=== PATIENT | female | born 1955 | race Caucasian/White ===

== ENCOUNTER 2016-11-29 18:22 | Emergency (ER) | payer MEDICAID ==
[~2016-11-29] VITALS: Ht 152.4 cm; Wt 65.0 kg
[~2016-11-29 18:22] MED LIST: CA CHLORIDE 10% 10 ML SYRINGE ONE; EPINEPHrine 0.1 MG/ML SYG ONE; NA BICARBONATE 8.4% 50 ML SYG ONE
[2016-11-29 18:35] VITALS: Ht 152.4 cm; Wt 65.0 kg
[2016-11-29] MEDS ORDERED: NORepinephrine 8MG/250 ML (PMX 250 ML ONE (18:37)
[2016-11-29 18:49] VITALS: RESP 20
[2016-11-29] MEDS ORDERED: CEFEPIME 2GM/50 ML (PMX) 50 ML IVPB STA (18:52)
[2016-11-29] MEDS ORDERED: SODIUM CHLORIDE 0.9% 1L BAG IV* STA (18:52)
[2016-11-29] MEDS ORDERED: NORepinephrine 8MG/250 ML (PMX 250 ML IV STA (18:52)
[2016-11-29] MEDS ORDERED: SODIUM CHLORIDE 0.9% 500 ML BAG IV* STA (18:56)
[2016-11-29] MEDS ORDERED: VANCOMYCIN 1 GM (PMX) 250 ML IVPB ONE (19:00)
--- NOTE | 2016-11-29 19:24 | ERA ---
ER Documentation Chief Complaint Date/Time DATE: 11/29/16 TIME: 18:58 Chief Complaint witness respiratory arrest at [facility] HPI 61-year-old female brought in by ambulance for witnessed respiratory arrest. The patient has a history of chronic respiratory failure, trach and vent dependent, diabetes, hypertension, COPD. When they arrived, the patient was bradycardic on the monitor but had a faint pulse. Patient is unable to provide any history. She was pulseless upon arrival. No other information is available ROS Unable to obtain as the patient is unconscious PMhx/Soc COPD, hypertension, chronic respiratory failure, diabetes per medical records FmHx Family History: other (Unable to obtain) Physical Exam Vitals Vital Signs Date Time Temp Pulse Resp B/P Pulse Ox O2 Delivery O2 Flow Rate FiO2 11/29/16 18:49 93 20 100 100 11/29/16 18:35 96.6 41 97/76 76 Physical Exam VITAL SIGNS: GENERAL: Patient is lying on gurney and is unresponsive, cyanotic HEAD: Head is normocephalic. No evidence of trauma. No scalp or facial swelling EYES: Pupils are nonreactive. ENT: Oropharynx and nasopharynx are clear and dry NECK: Supple. No masses. Trach in place, actively being bagged RESPIRATORY: Breath sounds significantly diminished bilaterally with bagging, right greater than left. No crackles or wheezing CV: No heart sounds heard. No palpable carotid or femoral pulses ABDOMEN: Soft, distended with G-tube in place. Surgical scars noted.. No masses EXTREMITIES: No deformity SKIN: No jaundice. No diaphoresis. Cyanotic NEUROLOGIC: Not alert. Unresponsive to external stimuli Results 24 hrs Laboratory Tests Test 11/29/16 18:24 Bedside Glucose 118mg/dL Current Medications Medications (Trade) Dose Ordered Sig/Nathaniel Route PRN Reason Start Time Stop Time Status Last Admin Dose Admin Norepinephrine (Levophed) 250 ml @ ud STK-MED ONCE .ROUTE 11/29/16 18:37 11/29/16 18:38 DC Sodium Chloride 2020 ml 2,020 ml BOLUS OVER 2 HOURS STAT IV* 11/29/16 18:52 11/29/16 18:56 DC Norepinephrine 250 ml @ 7.5 mls/hr ONCE STAT IV 11/29/16 18:52 12/01/16 04:11 Cefepime HCl 50 ml @ 100 mls/hr ONCE STAT IVPB 11/29/16 18:52 11/29/16 19:21 DC Vancomycin HCl (Vancocin) 250 ml @ 125 mls/hr ONCE ONCE IVPB 11/29/16 19:00 11/29/16 20:59 Sodium Chloride (NS) 500 ml ONCE STAT IV* 11/29/16 18:56 11/29/16 18:57 DC Procedures/MDM EKG: Rate/Rhythm: Sinus tachycardia QRS, ST, T-waves: No changes consistent w/ acute ischemia Impression: sinus tachycardia Central Line Placement by me: Patient consented, sterilely draped, full prep, gown, glove, mask, time out performed. Anesthesia: 1% lidocaine locally Location: Right femoral Device: Multiple lumen Technique: Seldinger technique. Secured with suture. Results: Venous return from all ports with easy saline flush. No complications. Guide wire retrieved and disposed of. ED Ultrasound: Central line placed by me using concurrent ultrasound guidance. Cardiopulmonary Resuscitation by me: See code documentation for specific details. ACLS and BLS were performed with high quality chest compressions and minimal interruptions. Reversible causes were assessed and treated. There is a wide differential for respiratory arrest. Initially the patient had return of spontaneous circulation after the first round of CPR. A central line was placed. EKG showed sinus tachycardia without evidence of a STEMI. Sepsis and cardiac workup was initiated. Patient was placed on a vent with oxygen saturation in the 80s on 100%. Patient started becoming bradycardic again prior to an x-ray being done and arrested. She had a rhythm on the monitor without pulses, consistent with PEA arrest. Second round of the CPR was unsuccessful. The decision was made to stop resuscitation attempts. Time of was called at 19:14. Critical Care Time: 45 minutes Treatments/Evaluations: Close monitoring and treatment of unstable vital signs, cardiorespiratory, and neurologic status, while maintaining tight balance of fluid, respiratory, and cardiac interventions. This time includes discussing the case with the patient and the patients family. This time does not include all procedures stated elsewhere in this record. This time also includes reviewing old records, labs and radiological studies. This time includes examining and re-examining the patient. Additionally, this time also includes arranging care with admitting and consulting physicians. Condition: Departure Diagnosis: Primary Impression: Cardiopulmonary arrest MARGO BAHENA MD Nov 29, 2016 19:24
== END 2016-11-30 00:36 | disposition expired ==
LOC: E/R 18:22
DX: I46.9 Cardiac arrest, cause unspecified (principal); J44.9 Chronic obstructive pulmonary disease, unspecified; I12.9 Hypertensive chronic kidney disease with stage 1 through stage 4 chronic kidney disease, or unspecified chronic kidney disease; N18.9 Chronic kidney disease, unspecified; E11.22 Type 2 diabetes mellitus with diabetic chronic kidney disease
CPT/HCPCS: 36556; 76937; 82962; 92950; 94002; J0171; J7030; J7040; Z7502; Z7610; C1751